=== PATIENT | male | born 1985 | race Hispanic/Latino ===

== ENCOUNTER 2019-04-05 09:00 | Inpatient (IN) | payer BC ==
[~2019-04-05] VITALS: Ht 175.3 cm; Wt 171.9 kg
[2019-04-05] MEDS ORDERED: SODIUM CHLORIDE 0.9% 1000ML 1,000 ML IV STA (09:26)
[2019-04-05] MEDS ORDERED: ASPIRIN 81 MG CHEW TAB PO ONE ×2 (09:30→17:30)
[2019-04-05] MEDS ORDERED: HYDROCODONE/CHLORPHENIRAMINE 5 ML LIQCR PO ONE (09:45)
[2019-04-05] MEDS ORDERED: AZITHROMYCIN 500MG/NS 250 ML 250 ML IV ONE (09:45)
[2019-04-05] MEDS ORDERED: ALBUTEROL/IPRATROPIUM 3 ML NEB NEB ONE (09:45)
[2019-04-05] MEDS ORDERED: CEFTRIAXONE SOD 1 GM/NS 50 ML 50 ML IV ONE ×2 (09:45→12:30)
[2019-04-05 09:52] LABS: BASOPHILS % 0.2 % (0.0-1.0); EOSINOPHILS # (AUTO) 0.1 (0.0-0.4); EOSINOPHILS % 0.8 % (0.0-6.0); HEMATOCRIT 45.8 % (38.2-49.6); HEMOGLOBIN 14.6 g/dL (14.0-18.0); LYMPHOCYTES % 11.6 % (18.0-39.1); MEAN CORPUSCULAR HEMOGLOBIN 29.9 pg (28-32); MEAN CORPUSCULAR HGB CONC 31.9 g/dL (31-35); MEAN CORPUSCULAR VOLUME 93.9 fL (81-99); MONOCYTES # (AUTO) 1.1 (0.2-0.8); MONOCYTES % 6.6 % (4.4-11.3); NEUTROPHILS # (AUTO) 13.5 (2.1-6.9); NEUTROPHILS % 80.3 % (38.7-80.0); PLATELET COUNT 287 x10e3/uL (140-360); RED BLOOD COUNT 4.88 x10e6/uL (4.3-5.7); RED CELL DISTRIBUTION WIDTH 13.2 % (11.7-14.4)
[2019-04-05 10:06] LABS: ALANINE AMINOTRANSFERASE 40 IU/L (0-55); ALBUMIN 3.5 g/dL (3.5-5.0); ALBUMIN/GLOBULIN RATIO 0.9 (0.8-2.0); ALKALINE PHOSPHATASE 68 IU/L (40-150); BLOOD UREA NITROGEN 7 mg/dL (7-26); BUN/CREATININE RATIO 9 (6-25); CALCIUM 9.3 mg/dL (8.4-10.2); CARBON DIOXIDE 24 mmol/L (22-29); CHLORIDE 100 mmol/L (98-107); CREATINE KINASE 154 IU/L (30-200); CREATININE, SERUM 0.77 mg/dL (0.72-1.25); EST GLOMERULAR FILTRATION RATE > 60 ML/MIN (60-); GLUCOSE 132 mg/dL (74-118); MAGNESIUM 1.9 MG/DL (1.3-2.1); SODIUM 135 mmol/L (136-145)
[2019-04-05 10:08] LABS: BILIRUBIN,URINE NEGATIVE (NEGATIVE); CLARITY,URINE CLEAR (CLEAR); COLOR,URINE YELLOW (YELLOW); KETONES,URINE NEGATIVE (NEGATIVE); LEUKOCYTE ESTERASE ,URINE NEGATIVE (NEGATIVE); NITRITE,URINE NEGATIVE (NEGATIVE); PROTEIN,URINE DIPSTICK TRACE (NEGATIVE); URINE UROBILINOGEN 0.2 mg/dL (0.2 - 1)
--- NOTE | 2019-04-05 10:08 | Diagnostic Imaging Report ---
EXAMINATION: CHEST SINGLE (PORTABLE) INDICATION: Chest pain COMPARISON: None FINDINGS: LINES/TUBES:None LUNGS:The lung volumes are very low. No focal consolidation. Possible mild interstitial pulmonary edema. PLEURA:No pleural effusion or pneumothorax. MEDIASTINUM:The cardiomediastinal silhouette appears normal in size and shape. BONES/SOFT TISSUES:No acute osseous injury. ABDOMEN:No free air under the diaphragm. IMPRESSION: Very low lung volumes. Possible mild interstitial pulmonary edema. Signed by: Jaun Colon MD on 04/05/2019 10:04 AM
[2019-04-05 10:19] LABS: INR 0.88; PARTIAL THROMBOPLASTIN TIME 30.4 seconds (23.8-35.5); PROTHROMBIN TIME 12.4 seconds (11.9-14.5)
[2019-04-05 10:29] LABS: BACTERIA,URINE RARE /HPF; EPITHELIAL CELLS,URINE RARE /LPF; MUCUS,URINE MODERATE (RARE); RBC,URINE 0-5 /HPF (0-5); WBC,URINE (MAN) 0-5 /HPF (0-5)
--- NOTE | 2019-04-05 10:57 | NUR ---
scale brought into pt room for accurate weight per md request; pt weight 381.8 lb
[2019-04-05] MEDS ORDERED: ONDANSETRON HCL INJ 2MG/ML 2ML 2 MG/ML VIAL IV NR (11:00)
[2019-04-05] MEDS ORDERED: MORPHINE SULFATE INJ 4 MG/ML INJ 1ML IV NR (11:15)
[2019-04-05 11:32] LABS: AMPHETAMINES SCREEN,URINE NEGATIVE (NEGATIVE); BENZODIAZEPINES SCREEN,URINE NEGATIVE (NEGATIVE); PHENCYCLIDINE SCREEN,URINE NEGATIVE (NEGATIVE)
[2019-04-05] MEDS ORDERED: SODIUM CHLORIDE 0.9% 1000ML 1,000 ML IV SCH (11:34)
--- OUTSIDE RECORDS SUMMARY | 2019-04-05 11:59 | XMS REPORT ---
Author Author [facility] Address Unknown Phone Unavailable Care Team Providers Care Spiral Runner Name Role Phone Michael CRAIG Unavailable Unavailable Problems This patient has no known problems. Allergies, Adverse Reactions, Alerts This patient has no known allergies or adverse reactions. Medications This patient has no known medications. Results Test Description Test Time Test Comments Text Results Atomic Results Result Comments CHEST SINGLE (PORTABLE) 2019-04-05 10:04:00 [place] [address] Patient Name: POLLO PRATT JR MR #: [id number] : 1985 Age/Sex: 33/M Req #: [id number] [facility] Physician: Ordered by: ELKIN CRAIG MD Report #: [id number] Location: ER Room/Bed: Procedure: [id number] DX/CHEST SINGLE (PORTABLE) Exam Date: Exam Time: REPORT STATUS: Signed EXAMINATION: CHEST SINGLE (PORTABLE) INDICATION: Amina st pain COMPARISON: None FINDINGS: LINES/TUBES:None LUNGS:The lung volumes are very low. No focal consolidation. Possible mild interstitial pulmonary edema. PLEURA:No pleural effusion or pneumothorax. MEDIASTINUM:The cardiomediastinal silhouette appears normal in size and shape. BONES/SOFT TISSUES:No acute osseous injury. ABDOMEN:No free air under the diaphragm. IMPRESSION: Very low lung volumes. Possible mild interstitial pulmonary edema. Signed by: Carlos Cloon MD on 04/05/2019 10:04 AM Dictated By: CARLOS COLON MD 1004 Transcribed By: JARETT on 04/05/19 1004 COPY TO: ELKIN CRAIG MD
[2019-04-05] MEDS: ONDANSETRON HCL INJ 2MG/ML 2ML 2 MG/ML VIAL IV PRN ×2 (12:30→20:16)
[2019-04-05] MEDS: MORPHINE SULFATE INJ 4 MG/ML INJ 1ML IV PRN ×4 (12:30→23:34)
[2019-04-05] MEDS: IPRATROPIUM BROMIDE 0.02% 2.5 ML NEB NEB SCH ×2 (13:00→19:00)
--- NOTE | 2019-04-05 13:35 | NUR ---
RECEIVED PT FROM MARIA LUISA. ASHLI. PT FAMILY AT BEDSIDE. BED IS AT THE LOWEST POSITION AND LOCKED. CALL LIGHT WITH IN EASY REACH. PT DENIES NEEDS AT THIS TIME.
[2019-04-05 14:00] VITALS: BP 150/89
[2019-04-05 14:02] VITALS: BP 141/103
--- NOTE | 2019-04-05 14:30 | NUR ---
PT C/O CHEST PAIN. PAGED JOSEY PHERESIS SPECIALIST AND NEW ORDERS RECEIVED.
[2019-04-05 15:00] VITALS: BP_SYST 150; BP_DIAS 102; BP_DIAS 83
[2019-04-05] MEDS: ALBUTEROL SULF 0.083% NEB SOLN 3 ML NEB NEB SCH ×3 (15:00→23:00)
[2019-04-05] MEDS ORDERED: ALBUTEROL/IPRATROPIUM 3 ML NEB NEB PRN (15:00)
[2019-04-05] MEDS ORDERED: NITROGLYCERIN 0.4 MG SUBL SL PRN (15:00)
[2019-04-05 16:00] VITALS: BP 150/112
--- NOTE | 2019-04-05 16:00 | NUR ---
MEDICATION RECONCILIATION IS NOT COMPLETED. PER THE PT, HE IS NOT ON ANY MEDICATIONS. INFORMED THE SAME TO JETT DOWLING.
--- NOTE | 2019-04-05 16:00 | NUR ---
NOTIFIED CHARGE NURSE ON PT STATUS.
--- NOTE | 2019-04-05 16:10 | NUR ---
CHARGE NURSE AT BEDSIDE TO SEE THE PT.
--- NOTE | 2019-04-05 16:20 | NUR ---
PT C/O CHEST PAIN. PAGED JETT DOWLING. NO NEW ORDERS RECEIVED.
--- NOTE | 2019-04-05 16:45 | NUR ---
NO TYLENOL GIVEN PER JOSEY,JETT
[2019-04-05] MEDS ORDERED: FUROSEMIDE INJ 10 MG/ML 4 ML VIAL IV ONE (17:00)
--- NOTE | 2019-04-05 17:00 | NUR ---
JETT DOWLING AT BEDSIDE TO SEE THE PT. NEW ORDERS RECEIVED.
[2019-04-05] MEDS: METOPROLOL TARTRATE INJ 1 MG/ML VIAL IV PRN ×2 (17:13→23:45)
[2019-04-05] MEDS ORDERED: CYCLOBENZAPRINE HCL 10 MG TAB PO PRN (17:15)
[2019-04-05] MEDS ORDERED: METHOCARBAMOL 100MG/1ML 10ML VIAL IV ONE (17:15)
[2019-04-05] MEDS: ENOXAPARIN SOD INJ 40 MG/0.4 ML SYR SC SCH (17:37)
--- NOTE | 2019-04-05 17:45 | NUR ---
PAGED DR. MARIANO REGARDING PT C/O CHEST PAIN. INFORMED PT STATUS TO THE DR. PER THE DR, HE WILL VISIT THE PT TODAY.
--- NOTE | 2019-04-05 18:15 | NUR ---
WALKING ROUND COMPLETED. PT RESTING ON BED. FAMILY AT BEDSIDE. DENIES NEEDS AT THIS TIME.
--- NOTE | 2019-04-05 18:30 | NUR ---
PT RESTING ON BED. FAMILY AT BEDSIDE. DENIES NEEDS AT THIS TIME.
[2019-04-05 18:35] LABS: CREATINE KINASE MB 0.6 ng/mL (0-5.0)
--- NOTE | 2019-04-05 19:00 | NUR ---
BEDSIDE SHIFT REPORT GIVEN TO THE SENIOR SHAREPOINT ARCHITECT RN. PT DENIES NEEDS AT THIS TIME. FAMILY AT BEDSIDE.
--- NOTE | 2019-04-05 19:40 | NUR ---
DR CHAMBERS SEE PATIENT AT BED SIDE WITH NURSE. DR CHAMBERS AWARE PATIENT HR HAS BEEN HIGH IN THE 130S. STATES THERE'S NO NEED TO TREAT THE SINUS TACH. IT'S NOT DANGEROUS. PATIENT WILL BE FINE. NEW ORDERED RECEIVED
[2019-04-05] MEDS ORDERED: IBUPROFEN 400 MG TAB PO PRN (19:45)
[2019-04-05 20:00] VITALS: BP 137/60
[2019-04-05] MEDS: COLCHICINE 0.6 MG TAB PO SCH (20:02)
[2019-04-05] MEDS: IBUPROFEN 400 MG TAB PO SCH (20:02)
[2019-04-05 20:30] VITALS: BP 137/60
--- NOTE | 2019-04-05 21:10 | NUR ---
DR MARIANO SEE PATIENT AT BED SIDE. NOTIFY MD ABOUT HIGH HR 130S. MD ORDER TO KEEP MONITOR. MD WOULD CHECK A LOOK AND ECHO RESULT AND ORDER SOME MORE TEST
[2019-04-05] MEDS ORDERED: SODIUM CHLORIDE 0.9% 50ML 50 ML ONE (21:27)
[2019-04-05] MEDS ORDERED: IOPAMIDOL 370 MG/ML 200 ML INFUS..BTL INJ ONE (21:27)
--- NOTE | 2019-04-05 21:27 | NUR ---
PATIENT IS OFF UNIT FOR CHEST CT
--- NOTE | 2019-04-05 21:55 | NUR ---
INSTRUMENTATION AND CONTROLS DESIGNER NOTIFIED PATIENT'S RIGHT AC IV INFILTRATED WHILE PATIENT'S GETTING CHEST CT. OLD IV WAS D/C. INSTRUMENTATION AND CONTROLS DESIGNER STARTED NEW IV TO LEFT AC 20G
--- NOTE | 2019-04-05 22:10 | NUR ---
PATIENT IS BACK TO UNIT
[2019-04-06] VITALS (8 sets, daily range): BP systolic 107–161; BP diastolic 53–81
--- NOTE | 2019-04-06 01:25 | Diagnostic Imaging Report ---
EXAM: CT Chest WITH contrast 04/05/2019 9:09 PM INDICATION: Chest pain. Pulmonary embolus. COMPARISON: None. Correlation with chest x-ray dated 04/05/2019. TECHNIQUE: Chest was scanned utilizing a multidetector helical scanner from the lung apex through the level of the adrenal glands without administration of IV contrast. Coronal and sagittal reformations were obtained. Routine protocol was performed. IV CONTRAST: 100 cc Isovue 300 RADIATION DOSE: Total DLP: 552.18 mGy*cm Estimated effective dose: (DLP x 0.014 x size factor) mSv COMPLICATIONS: None FINDINGS: LINES/ TUBES: None. LUNGS AND AIRWAYS: Evaluation for pulmonary embolism is limited due to suboptimal opacification and beam hardening artifact. Filling defect in the posterior lower lobe pulmonary arteries, particularly on the left as seen on axial image 55 may be mixing artifact. There is a thick-walled cavitary mass in the left upper lobe anteriorly, which measures 4.5 x 7.6 x 4.9 cm in craniocaudal, AP and transverse dimensions. It abuts the thoracic wall as seen on image 41 series 2. No evidence of rib erosion. Left basilar subsegmental compressive atelectasis. PLEURA: There is a small left pleural effusion. No pneumothorax. HEART AND MEDIASTINUM: The thyroid gland is normal. There are mildly enlarged prevascular lymph nodes lateral to the aortic arch, the largest measuring 1.6 cm in short axis on image 36. No axillary lymphadenopathy. No right hilar lymphadenopathy. Mildly enlarged left hilar lymph node measures 1.3 cm in short axis on image 47. The heart is normal in size.. There is no pericardial effusion. UPPER ABDOMEN: Limited non-contrast views of the upper abdomen show diffuse hepatic steatosis. The adrenal glands are normal. BONES: No acute osseous abnormality. No suspicious lesions. SOFT TISSUES: Unremarkable. IMPRESSION: 1. 7.6 cm cavitary in the left upper lobe anteriorly; differential diagnosis includes neoplasm versus cavitating pneumonia in the proper clinical setting. If there is no clinical history to suggest infectious etiology diagnosis may be warranted. Recommend pulmonology consultation. Mild mediastinal lymphadenopathy. 2. Limited Evaluation for pulmonary embolism. If concern remains, consider repeat examination in 12 hours or alternative study such as ventilation perfusion scan. 3. Small left pleural effusion. Signed by: Dr. Saul Rubio M.D. on 04/06/2019 1:22 AM
[2019-04-06] MEDS: ALBUTEROL SULF 0.083% NEB SOLN 3 ML NEB NEB SCH ×6 (03:00→23:00)
[2019-04-06 03:11] LABS: BASOPHILS # (AUTO) 0.1 (0.0-0.1); BASOPHILS % 0.2 % (0.0-1.0); EOSINOPHILS % 0.1 % (0.0-6.0); HEMATOCRIT 40.2 % (38.2-49.6); HEMOGLOBIN 13.1 g/dL (14.0-18.0); LYMPHOCYTES # (AUTO) 2.6 (1.0-3.2); LYMPHOCYTES % 9.2 % (18.0-39.1); MEAN CORPUSCULAR HGB CONC 32.6 g/dL (31-35); MONOCYTES # (AUTO) 1.7 (0.2-0.8); NEUTROPHILS # (AUTO) 24.1 (2.1-6.9); NEUTROPHILS % 83.7 % (38.7-80.0); PLATELET COUNT 290 x10e3/uL (140-360); RED BLOOD COUNT 4.23 x10e6/uL (4.3-5.7); RED CELL DISTRIBUTION WIDTH 13.4 % (11.7-14.4)
[2019-04-06 03:38] LABS: B-TYPE NATRIURETIC PEPTIDE2 < 5.0 pg/mL (0-100)
[2019-04-06 03:39] LABS: CREATINE KINASE 129 IU/L (30-200)
[2019-04-06] MEDS: ONDANSETRON HCL INJ 2MG/ML 2ML 2 MG/ML VIAL IV PRN (03:39)
[2019-04-06] MEDS: MORPHINE SULFATE INJ 4 MG/ML INJ 1ML IV PRN ×4 (03:39→23:13)
[2019-04-06 04:03] LABS: ANION GAP 14.8 mmol/L (8-16); BLOOD UREA NITROGEN 8 mg/dL (7-26); BUN/CREATININE RATIO 10 (6-25); CARBON DIOXIDE 24 mmol/L (22-29); CHLORIDE 99 mmol/L (98-107); CHOL/HDL RATIO 3.5 (3.9-4.7); CHOLESTEROL 156 MD/DL (0-199); CREATININE, SERUM 0.79 mg/dL (0.72-1.25); EST GLOMERULAR FILTRATION RATE > 60 ML/MIN (60-); GLUCOSE 152 mg/dL (74-118); HDL CHOLESTEROL 45 MG/DL (40-60); LDL CHOLESTEROL 88 MG/DL (60-130); POTASSIUM 3.8 mmol/L (3.5-5.1); SODIUM 134 mmol/L (136-145); TRIGLYCERIDES 114 MG/DL (0-149)
[2019-04-06] MEDS ORDERED: VANCOMYCIN 1GM/NS 250 ML 250 ML IV SCH ×2 (05:00→21:00)
[2019-04-06] MEDS ORDERED: CEFTRIAXONE SOD 1 GM/NS 50 ML 50 ML IV SCH ×2 (05:00→09:00)
[2019-04-06] MEDS: IBUPROFEN 400 MG TAB PO SCH ×2 (05:34→13:06)
--- NOTE | 2019-04-06 05:35 | NUR ---
ATTEMPTED TO OBTAIN CONSENT FORM FOR PICC LINE INSERTION. PATIENT WANTED TO WAIT AND TALK TO DOCTOR BEFORE HE AGREE TO HAVE PICC LINE INSERTION.
--- NOTE | 2019-04-06 05:58 | NUR ---
PAGED DR CORDERO FOR CONSULT. WAITING FOR MD TO CALL BACL
--- NOTE | 2019-04-06 05:58 | NUR ---
SPOKE TO DR HERZOG ABOUT CONSULT. SAID HE WOULD SEE PATIENT LATER
[2019-04-06 06:36] LABS: BASOPHILS # (AUTO) 0.1 (0.0-0.1); BASOPHILS % 0.2 % (0.0-1.0); EOSINOPHILS % 0.1 % (0.0-6.0); HEMATOCRIT 42.4 % (38.2-49.6); HEMOGLOBIN 13.6 g/dL (14.0-18.0); LYMPHOCYTES # (AUTO) 1.9 (1.0-3.2); LYMPHOCYTES % 7.7 % (18.0-39.1); MEAN CORPUSCULAR HEMOGLOBIN 30.4 pg (28-32); MEAN CORPUSCULAR HGB CONC 32.1 g/dL (31-35); MEAN CORPUSCULAR VOLUME 94.9 fL (81-99); MONOCYTES # (AUTO) 1.7 (0.2-0.8); MONOCYTES % 7.2 % (4.4-11.3); NEUTROPHILS # (AUTO) 20.2 (2.1-6.9); NEUTROPHILS % 84.2 % (38.7-80.0); PLATELET COUNT 256 x10e3/uL (140-360); RED BLOOD COUNT 4.47 x10e6/uL (4.3-5.7); RED CELL DISTRIBUTION WIDTH 13.4 % (11.7-14.4)
[2019-04-06 06:54] LABS: ALANINE AMINOTRANSFERASE 29 IU/L (0-55); ALBUMIN 3.1 g/dL (3.5-5.0); ALBUMIN/GLOBULIN RATIO 0.8 (0.8-2.0); ALKALINE PHOSPHATASE 63 IU/L (40-150); ANION GAP 10.8 mmol/L (8-16); BLOOD UREA NITROGEN 8 mg/dL (7-26); BUN/CREATININE RATIO 11 (6-25); CARBON DIOXIDE 28 mmol/L (22-29); CHLORIDE 101 mmol/L (98-107); CREATININE, SERUM 0.72 mg/dL (0.72-1.25); EST GLOMERULAR FILTRATION RATE > 60 ML/MIN (60-); GLUCOSE 115 mg/dL (74-118); POTASSIUM 3.8 mmol/L (3.5-5.1); SODIUM 136 mmol/L (136-145)
[2019-04-06] MEDS: IPRATROPIUM BROMIDE 0.02% 2.5 ML NEB NEB SCH ×4 (07:15→19:00)
[2019-04-06 07:41] LABS: BAND NEUTROPHILS % (MANUAL) 6 %; LYMPHOCYTES % (MANUAL) 16 % (19-48); MONOCYTES % (MANUAL) 12 % (3.4-9.0); NEUTROPHILS % (MANUAL) 66 % (40-74); PLATELET ESTIMATE ADEQUATE; PLATELET MORPHOLOGY COMMENT NORMAL; RBC MORPHOLOGY COMMENT NORMAL
[2019-04-06 08:01] LABS: BAND NEUTROPHILS % (MANUAL) 6 %; LYMPHOCYTES % (MANUAL) 7 % (19-48); MONOCYTES % (MANUAL) 16 % (3.4-9.0); NEUTROPHILS % (MANUAL) 71 % (40-74)
[2019-04-06 08:02] LABS: ANISOCYTOSIS SLIGHT; PLATELET ESTIMATE ADEQUATE; PLATELET MORPHOLOGY COMMENT NORMAL; POIKILOCYTOSIS SLIGHT; RBC MORPHOLOGY COMMENT NORMAL
[2019-04-06] MEDS: COLCHICINE 0.6 MG TAB PO SCH (08:44)
[2019-04-06] MEDS ORDERED: CEFTRIAXONE SOD 1 GRAM/0.9% SOD CHL 50ML BAG IV SCH (09:00)
[2019-04-06] MEDS: BENZONATATE 100 MG CAP PO PRN ×2 (09:42→23:50)
[2019-04-06] MEDS ORDERED: AZITHROMYCIN 500MG/SOD CHL 0.9% 250ML BAG IV SCH (12:00)
[2019-04-06] MEDS: SODIUM CHLORIDE 0.9% 1000ML 1,000 ML IV SCH (12:37)
[2019-04-06] MEDS: VANCOMYCIN 1GM/NS 250 ML 250 ML IV SCH (14:37)
--- NOTE | 2019-04-06 14:57 | Consultation ---
DATE OF CONSULTATION: Pulmonary Critical Care Consultation CHIEF COMPLAINT: Fevers and pleuritic left-sided chest pain. HISTORY OF PRESENT ILLNESS: The patient is a 33-year-old man. He denies any past medical history. He notes some fever and chills for the past month. He said they were easily relieved with Tylenol and he was able to go to work every day. About 1 to 2 days ago, he developed severe pain in the left upper chest that was worse with inspiration. He noted more difficulty breathing. He also complains of cough productive of some yellowish green phlegm. The patient came to the emergency department. He had a CT scan that showed a cavitary lesion in the left upper lobe. PAST SURGICAL HISTORY: Noncontributory. PAST MEDICAL HISTORY: 1. Possible obstructive sleep apnea, although the patient has never been tested. 2. No history of diabetes. 3. No prior history of tuberculosis. 4. The patient did have a dental extraction about 2 months ago. Other than that, his teeth are in fairly and good condition. SOCIAL HISTORY: He currently smokes. He does not use any alcohol or other drugs. He is here with his family. He is born and raised in [place] and has only traveled once to [place]. He has no other travel. He denies any exposure to tuberculosis. There are no birds at home. REVIEW OF SYSTEMS: The patient does complain of some headache. He notes some fevers over the past month that were usually relieved with Tylenol. He is not complaining of neck pain. He does note pain in the left anterior upper chest. It is worse with inspiration. He has no abdominal pain. He has no nausea or vomiting. He has no leg edema. He denies any skin rashes. He denies any testicular lumps or masses. PHYSICAL EXAMINATION: VITAL SIGNS: The patient is afebrile to T-max of 99.6 and his pulse is 124. His respiratory rate is 24 and his blood pressure is 129/56. His saturation is 95%. HEENT: Shows no facial swelling or erythema. LYMPHATIC: Shows no submandibular, cervical, or supraclavicular adenopathy. CARDIAC: Reveals regular rate and rhythm with normal S1 and S2. LUNGS: Auscultation of lungs shows clear breath sounds bilaterally. There is no wheezing. ABDOMEN: Soft and nontender. There is no rebound or guarding. EXTREMITIES: There is no leg edema or calf tenderness. There is no cyanosis or clubbing. SKIN: Shows no rashes. NEUROLOGICAL: Shows no focal abnormalities. IMPRESSION: 1. Left upper lobe pneumonia and lung abscess with sepsis, present on admission. 2. Probable obstructive sleep apnea. PLAN: 1. The patient will be on antibiotics to cover for anaerobes and gram-positive organisms, which are more likely to cause a cavitary pneumonia. 2. The patient will have sputum for Gram stain and culture. 3. Sputums for AFB and QuantiFERON test. 4. Urine antigen for histoplasmosis and fungal serologies. 5. Pain control. 6. Continue IV fluids. 7. Monitor white blood cell count and await blood culture results. Elliot Desouza MD [facility]/MODL /[id number]
--- NOTE | 2019-04-06 16:12 | Consultation ---
DATE OF CONSULTATION: REASON FOR CONSULTATION: Pneumonia, lung abscess, concerned about infection. HISTORY OF PRESENT ILLNESS: This patient, who is a 33-year-old male, denies any past medical history. He does have underlying history of a morbidly obese patient. He denies anything else. From the last month or so, he has been having fever, chills, and cough. He takes Tylenol. Apparently, he pulled his teeth. He had a tooth extraction before that. The patient comes in the emergency room with cough and fever and chills. The patient was admitted through emergency room. Chest x-ray and CT scans were done and showed to have left upper lobe abscess. The patient is currently lying in bed. He is telling me he does have underlying history of breathing problem. His breathing is "heavy." PAST MEDICAL HISTORY: He denies. PAST SURGICAL HISTORY: He denies. ALLERGIES: NKA. SOCIAL HISTORY: He denies smoking, drug abuse, or alcohol abuse. He is . 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 REVIEW OF SYSTEMS: Significant for fever for 4 weeks, shortness of breath for 4 weeks, and cough for 4 weeks, productive. PHYSICAL EXAMINATION: GENERAL: He is currently alert and oriented, does not seem to be in acute distress, but he looks short of breath. HEENT: Normocephalic. Not icteric. NECK: Supple. No JVD. No lymphadenopathy. No thyromegaly. CHEST: Few crackles bilateral. He does have rhonchi on the left side. HEART: S1 and S2. No S3, S4, or murmur. ABDOMEN: Soft. Bowel sounds present. Obese. No tenderness. No hepatosplenomegaly. EXTREMITIES: No edema. SKIN: No rash. JOINTS: No erythema or edema. LABORATORY DATA: Reviewed. Chart reviewed. X-ray also reviewed. His white count on admission with 24,000, came down to 16.89 and hemoglobin 14. His sodium 134, potassium 3.8, and creatinine 0.72. IMPRESSION AND PLAN: 1. Pneumonia, lung abscess. Differential diagnosis post lung abscess from aspiration. The patient is at risk for that. He is obese. He had some tooth surgery done. 2. Differential diagnosis is TB. Differential diagnosis also postobstructive malignancy. RECOMMENDATIONS: 1. We will change antibiotic, vancomycin and Zosyn. Obtain sputum for cultures. Obtain sputum for AFB x3, sample one q.a.m. Obtain HIV and screen with confirmation if need to. 2. We will move the patient to respiratory isolation in the meantime. Discussed with Critical Care. Discussed with Internal Medicine. We will follow. MD SAMMI Rossi/LUTHER /[id number]
[2019-04-06] MEDS ORDERED: IBUPROFEN 400 MG TAB PO PRN (16:15)
--- NOTE | 2019-04-06 16:58 | Consultation ---
DATE OF CONSULTATION: 04/06/2019 Cardiology Consult Note REASON FOR CONSULT: Chest pain. CHIEF COMPLAINT: Chest pain, fevers. HISTORY OF PRESENT ILLNESS: The patient is a 33-year-old man, no previous cardiovascular history, who presents for worsening chest pain for past several weeks as well as low-grade fevers. Denies any heart failure symptoms otherwise. REVIEW OF SYSTEMS: As above, otherwise negative. FAMILY HISTORY: Noncontributory. SOCIAL HISTORY: He does not smoke, drink, or abuse drugs. OUTPATIENT MEDICATIONS: None. ALLERGIES: NO KNOWN DRUG ALLERGIES. OBJECTIVE: VITAL SIGNS: Temperature 100.6, pulse 117, respiratory rate 24, blood pressure 132/63 saturating 99% on 2 L nasal cannula. GENERAL: Obese man in mild distress. CARDIOVASCULAR: Regular rate and rhythm. No murmurs, rubs, or gallops. LUNGS: Clear to auscultation bilaterally. ABDOMEN: Soft, nontender, nondistended. Obese. NEURO AND Psych: Alert and oriented to person, place, and time. Normal affect. INPATIENT MEDICATIONS: Reviewed. LABORATORY DATA: Reviewed. TELEMETRY DATA: Reviewed, shows sinus tachycardia, rate in the 110s to 130s. IMAGING DATA: Reviewed. Chest CT shows large cavitary lung lesion. No obvious pulmonary embolism. ASSESSMENT: 1. Chest pain, acute. 2. Tachycardia. 3. Cavitary lung mass. PLAN: Defer management of cavitary lung lesion to Pulmonary. Chest pain is noncardiac in origin. The patient has already been ruled out for acute IL. Sinus tachycardia likely secondary to underlying infectious process. No treatment necessary. We will monitor. Thank you for this consult. MD BK FullerP/MODL /[id number]
[2019-04-06 17:26] LABS: ABG HCO3 25 mmol/L (23-28); ABG PCO2 42 mmHg (41-51); ABG PH 7.39 (7.31-7.41); ABG PO2 80 mmHg (80-105)
[2019-04-06] MEDS: ENOXAPARIN SOD INJ 40 MG/0.4 ML SYR SC SCH (17:51)
--- NOTE | 2019-04-06 18:35 | Diagnostic Imaging Report ---
Ventilation/perfusion lung scan Clinical Information: 33 M with constant chest pain radiating to back; thick walled 7.6 cavitary mass in ARTEM. Comparison: CT chest PE protocol 04/05/2019; chest radiograph 04/05/2019 Discussion: Xenon-133 gas 21 mCi was administered via inhalation. Dynamic images of the lungs in the posterior projection were obtained through single breath, equilibrium, and washout phases. Distribution of tracer activity is minimally irregular throughout the lungs. There are no segmental ventilatory defects. Washout of tracer is mildly delayed without air trapping. Tracer uptake in liver consistent with steatosis. Perfusion images of the lungs were obtained in multiple projections following intravenous administration of approximately 7 mCi of Tc-99m MAA. Distribution of tracer is minimally irregular throughout the lungs. A nonsegmental focal defect is seen in the ARTEM anteriorly, consistent with known cavitary mass. The contours of the lungs are well demarcated. There are no segmental perfusion defects of any size. The cardiomediastinal silhouette is unremarkable. Impression: 1. Scan findings represent a VERY LOW probability for acute pulmonary embolic disease based on the PIOPED II criteria. 2. Scan evidence of mild obstructive lung disease. 3. Nonsegmental defect in the ARTEM consistent with known mass. Signed by: Dr. Winnie Brown M.D. on 04/06/2019 6:31 PM
[2019-04-06] MEDS: PIPER-TAZ 3.375 GM 50 ML IV SCH (19:18)
--- NOTE | 2019-04-06 20:30 | NUR ---
RECEIVED PATIENT AOX4, A LITTLE COUGHING PRESENT. PATIENT'S HEART RATE WAS ELEVATED AND RAN A TEMPERATURE OF 101.6. PATIENT WAS MEDICATED ORDERED, IV IS FLOWING AND PATENT, FAMILY MEMBER AT BEDSIDE.
[2019-04-06] MEDS: ACETAMINOPHEN 325 MG TAB PO PRN (20:32)
[2019-04-06] MEDS ORDERED: ALBUTEROL SULF 0.083% NEB SOLN 3 ML NEB NEB SCH (23:00)
[2019-04-07] VITALS (8 sets, daily range): BP systolic 111–144; BP diastolic 72–81
--- NOTE | 2019-04-07 00:15 | NUR ---
PATIENT HAD A RECENT COUGHING SPELL AND WAS MEDICATED ORDERED. NOW RESTING IN BED, FAMILY MEMBER PRESENT, WILL CONTINUE TO MONITOR.
[2019-04-07] MEDS: MORPHINE SULFATE INJ 4 MG/ML INJ 1ML IV PRN ×6 (00:40→18:36)
[2019-04-07] MEDS: PIPER-TAZ 3.375 GM 50 ML IV SCH ×4 (00:45→18:00)
[2019-04-07] MEDS: IPRATROPIUM BROMIDE 0.02% 2.5 ML NEB NEB SCH ×4 (02:05→19:15)
[2019-04-07] MEDS: LEVALBUTEROL HCL SOLN NEBU 0.63 MG/3 ML NEB INH PRN ×4 (02:05→22:40)
[2019-04-07] MEDS: ALBUTEROL SULF 0.083% NEB SOLN 3 ML NEB NEB SCH ×6 (02:21→23:00)
[2019-04-07] MEDS: VANCOMYCIN 1GM/NS 250 ML 250 ML IV SCH ×2 (02:30→14:36)
[2019-04-07 05:53] LABS: BASOPHILS % 0.2 % (0.0-1.0); HEMATOCRIT 40.3 % (38.2-49.6); HEMOGLOBIN 12.8 g/dL (14.0-18.0); LYMPHOCYTES # (AUTO) 1.6 (1.0-3.2); LYMPHOCYTES % 6.3 % (18.0-39.1); MEAN CORPUSCULAR HEMOGLOBIN 30.4 pg (28-32); MEAN CORPUSCULAR HGB CONC 31.8 g/dL (31-35); MEAN CORPUSCULAR VOLUME 95.7 fL (81-99); MONOCYTES # (AUTO) 1.7 (0.2-0.8); MONOCYTES % 6.6 % (4.4-11.3); NEUTROPHILS # (AUTO) 22.2 (2.1-6.9); NEUTROPHILS % 86.1 % (38.7-80.0); PLATELET COUNT 260 x10e3/uL (140-360); RED BLOOD COUNT 4.21 x10e6/uL (4.3-5.7); RED CELL DISTRIBUTION WIDTH 13.5 % (11.7-14.4)
[2019-04-07 06:12] LABS: ALANINE AMINOTRANSFERASE 22 IU/L (0-55); ALBUMIN 2.9 g/dL (3.5-5.0); ALBUMIN/GLOBULIN RATIO 0.7 (0.8-2.0); ALKALINE PHOSPHATASE 63 IU/L (40-150); ANION GAP 13.8 mmol/L (8-16); BLOOD UREA NITROGEN 7 mg/dL (7-26); BUN/CREATININE RATIO 9 (6-25); CARBON DIOXIDE 27 mmol/L (22-29); CHLORIDE 99 mmol/L (98-107); CREATININE, SERUM 0.78 mg/dL (0.72-1.25); EST GLOMERULAR FILTRATION RATE > 60 ML/MIN (60-); GLUCOSE 124 mg/dL (74-118); POTASSIUM 3.8 mmol/L (3.5-5.1); SODIUM 136 mmol/L (136-145)
[2019-04-07] MEDS: ONDANSETRON HCL INJ 2MG/ML 2ML 2 MG/ML VIAL IV PRN ×3 (08:12→18:36)
[2019-04-07] MEDS: BENZONATATE 100 MG CAP PO PRN ×2 (08:12→18:36)
[2019-04-07] MEDS: SODIUM CHLORIDE 0.9% 1000ML 1,000 ML IV SCH (08:38)
--- NOTE | 2019-04-07 11:51 | Progress Note ---
DATE: Cardiology Progress Note SUBJECTIVE: The patient complains of shortness of breath especially with exertion and also cough. When he coughs, he does experience chest pains. OBJECTIVE: VITAL SIGNS: Temperature 97.7, pulse 121, respiratory rate 18, blood pressure 113/81, oxygen saturation 99% on 2 L nasal cannula. GENERAL: Alert and oriented x3. Resting in the bed. Appears to be using accessory muscles to breathe. NECK: Supple. No JVD noted. CARDIOVASCULAR: Tachycardic, regular rate and rhythm. No murmurs or gallops. LUNGS: Diminished breath sounds throughout. ABDOMEN: Soft, nontender. CARDIOVASCULAR MEDICATIONS: 1. Nitro 0.4 mg p.r.n. as needed for chest pain. Metoprolol 2.5 mg q.6 hours p.r.n. for heart rate greater than 110. 2. Lovenox 40 mg subcu daily. LABORATORY DATA: WBC 25.78, hemoglobin 12.8, hematocrit 40.3, platelets 260. Sodium 136, potassium 3.8, BUN 7, creatinine 0.78, glucose 124. TELEMETRY: Sinus tachycardia. IMPRESSION: 1. Chest pain. 2. Tachycardia. 3. Cavitary lung mass. 4. Shortness of breath. PLAN: Defer management of cavitary lung lesion to Pulmonary. The patient is being worked up for possible TB, take precaution. Chest pain appears to be noncardiac in origin. Continue to monitor. Pain management per primary team. Sinus tachycardia likely secondary to infectious process. Blood pressure remains borderline. For now, continue to utilize p.r.n. metoprolol as indicated. We will continue to follow. Dictated by Lilibeth So, JETT MD [place] [place]/LUTHER /[id number]
[2019-04-07] MEDS: ACETAMINOPHEN 325 MG TAB PO PRN ×2 (12:30→19:52)
--- NOTE | 2019-04-07 14:10 | Diagnostic Imaging Report ---
EXAMINATION: CHEST XRAY LINE PLACEMENT INDICATION: ^POST PICC LINE INSERTION ^[id number] ^[id number] COMPARISON: 04/05/2019 FINDINGS: AP view TUBES and LINES: New right PICC in place with tip overlying superior SVC. LUNGS: Limited by low lung volumes and body habitus. Increased left lung airspace opacities. PLEURA: No pneumothorax. HEART AND MEDIASTINUM: The cardiomediastinal silhouette is enlarged. BONES AND SOFT TISSUES: No acute osseous lesion. Soft tissues are unremarkable. UPPER ABDOMEN: No free air under the diaphragm. IMPRESSION: Right PICC in place with tip overlying superior SVC. No pneumothorax. Increased left lung airspace opacities, representing worsening asymmetric pulmonary edema and/or pneumonia. Layering left pleural effusion cannot be excluded. Signed by: Dr. Praveen Braun MD on 04/07/2019 2:07 PM
--- NOTE | 2019-04-07 14:37 | NUR ---
COLLECTED DAY 2 SPUTUM SAMPLE AND TOOK IT TO LAB
--- NOTE | 2019-04-07 14:48 | Progress Note ---
DATE: SUBJECTIVE: The patient feels improved. He has less pain. He is not complaining of fevers. PHYSICAL EXAMINATION: VITAL SIGNS: The patient is afebrile. The T-max is 99.9. Blood pressure is 112/72 and saturation is 99% on 4 L. HEENT: Shows no facial swelling or erythema. CARDIAC: Reveals regular rate and rhythm with normal S1 and S2. LUNGS: Auscultation of lungs reveals clear breath sounds bilaterally. There is no wheezing. ABDOMEN: Soft, nontender. There is no rebound or guarding. EXTREMITIES: Show no leg edema or calf tenderness. There is no cyanosis clubbing. SKIN: Shows no rashes. NEUROLOGIC: Shows no focal abnormalities. IMPRESSION: 1. Cavitary pneumonia with sepsis, present on admission. 2. Obstructive sleep apnea. PLAN: 1. Continue current antibiotics. 2. Await AFB results and QuantiFERON test. 3. Await HIV serologies and fungal serologies. 4. Pain control. 5. Continue to monitor blood counts. Elliot Desouza MD [facility]/MODL /[id number]
[2019-04-07] MEDS: ENOXAPARIN SOD INJ 40 MG/0.4 ML SYR SC SCH (18:00)
--- NOTE | 2019-04-07 18:14 | Progress Note ---
DATE: SUBJECTIVE: Mr. Morales is feeling better. His breathing is better. REVIEW OF SYSTEMS: There is nothing new. He is still having cough. LABORATORY DATA: Reviewed. His white count went up to 25.7, hemoglobin 12. We are still waiting on AFB. His sputum cultures are still pending. PHYSICAL EXAMINATION: GENERAL: He is currently alert, oriented, does not seem in acute distress. VITAL SIGNS: Stable. Afebrile. Temperature 97.7, heart rate 120, respiration 18. HEENT: Normocephalic. NECK: Supple. CHEST: Few crackles on the left. COR: S1, S2. No S3, S4 or murmur. ABDOMEN: Soft, obese. EXTREMITIES: No edema. IMPRESSION: 1. A left upper lobe abscess, concerned about mycobacterium, concerned about bacteria, such as Staph aureus, maybe MRSA versus mixed , rule out aspiration. 2. Obesity. 3. Sleep apnea. PLAN: 1. Continue with IV antibiotic. His white count normalized and is feeling better. We are awaiting for sputum cultures, sputum for AFB x3. Sample was sent. 2. We are awaiting also for his HIV. 3. Further recommendations to follow. 4. We will send sputum for fungal. Discussed with the patient. Answered all his question. Discussed with the medical team. MD SAMMI Rossi/LUTHER /[id number]
--- NOTE | 2019-04-07 20:00 | NUR ---
PATIENT IN STABLE CONDITION, NO SIGNS OF DISTRESS AT THIS TIME. BREATH SOUND WERE CLEAR, NASAL CANNULA INTACT AND PATENT. NEW PICC LINE IN PLACE, FAMILY MEMBER PRESENT, CALL LIGHT WITHIN REACH, WILL CONTINUE TO MONITOR.
[2019-04-08] VITALS (8 sets, daily range): BP systolic 99–135; BP diastolic 54–83
[2019-04-08] MEDS: PIPER-TAZ 3.375 GM 50 ML IV SCH ×5 (00:47→23:58)
[2019-04-08] MEDS: MORPHINE SULFATE INJ 4 MG/ML INJ 1ML IV PRN ×6 (00:48→23:22)
[2019-04-08] MEDS: VANCOMYCIN 1GM/NS 250 ML 250 ML IV SCH (02:32)
[2019-04-08] MEDS: BENZONATATE 100 MG CAP PO PRN (02:33)
[2019-04-08] MEDS: ALBUTEROL SULF 0.083% NEB SOLN 3 ML NEB NEB SCH ×6 (03:50→23:00)
[2019-04-08] MEDS: IPRATROPIUM BROMIDE 0.02% 2.5 ML NEB NEB SCH ×4 (03:50→19:45)
[2019-04-08 04:41] LABS: BASOPHILS % 0.2 % (0.0-1.0); EOSINOPHILS # (AUTO) 0.1 (0.0-0.4); EOSINOPHILS % 0.5 % (0.0-6.0); HEMATOCRIT 36.7 % (38.2-49.6); HEMOGLOBIN 11.9 g/dL (14.0-18.0); LYMPHOCYTES # (AUTO) 2.1 (1.0-3.2); MEAN CORPUSCULAR HEMOGLOBIN 30.7 pg (28-32); MEAN CORPUSCULAR HGB CONC 32.4 g/dL (31-35); MEAN CORPUSCULAR VOLUME 94.8 fL (81-99); MONOCYTES # (AUTO) 1.4 (0.2-0.8); MONOCYTES % 7.4 % (4.4-11.3); NEUTROPHILS % 80.2 % (38.7-80.0); PLATELET COUNT 247 x10e3/uL (140-360); RED BLOOD COUNT 3.87 x10e6/uL (4.3-5.7); RED CELL DISTRIBUTION WIDTH 13.4 % (11.7-14.4)
[2019-04-08 05:02] LABS: ALANINE AMINOTRANSFERASE 23 IU/L (0-55); ALBUMIN 2.5 g/dL (3.5-5.0); ALBUMIN/GLOBULIN RATIO 0.6 (0.8-2.0); ALKALINE PHOSPHATASE 65 IU/L (40-150); ANION GAP 11.4 mmol/L (8-16); BLOOD UREA NITROGEN 6 mg/dL (7-26); BUN/CREATININE RATIO 8 (6-25); CALCIUM 8.6 mg/dL (8.4-10.2); CARBON DIOXIDE 29 mmol/L (22-29); CHLORIDE 100 mmol/L (98-107); CREATININE, SERUM 0.75 mg/dL (0.72-1.25); EST GLOMERULAR FILTRATION RATE > 60 ML/MIN (60-); GLUCOSE 127 mg/dL (74-118); POTASSIUM 3.4 mmol/L (3.5-5.1); SODIUM 137 mmol/L (136-145)
[2019-04-08] MEDS: LEVALBUTEROL HCL SOLN NEBU 0.63 MG/3 ML NEB INH PRN ×4 (07:02→19:45)
[2019-04-08] MEDS: DOCUSATE SODIUM 100 MG CAP PO SCH ×2 (08:28→16:15)
[2019-04-08] MEDS: POLYETHYLENE GLYCOL 3350 17 GM PACK PO SCH ×2 (08:28→16:15)
--- NOTE | 2019-04-08 10:22 | NUR ---
CALLED AND INFORMED JOSEY RODRIGUEZ N.P. OF PATIENT'S POTASSIUM OF 3.4- NEW ORDER RECEIVED.
[2019-04-08] MEDS ORDERED: POTASSIUM CHLORIDE 20 MEQ TAB CR PO NR (10:30)
--- NOTE | 2019-04-08 11:21 | Progress Note ---
DATE: Pulmonary Progress Note SUBJECTIVE: The patient is feeling better. He still has mild temperature of 99.7. PHYSICAL EXAMINATION: VITAL SIGNS: The patient is afebrile. The vital signs are stable. HEENT: Shows no facial swelling or erythema. CARDIAC: Reveals regular rate and rhythm with normal S1 and S2. LUNGS: Auscultation of lungs shows clear breath sounds bilaterally. There is no wheezing. ABDOMEN: Soft, nontender. There is no rebound or guarding. EXTREMITIES: Show no leg edema or calf tenderness. There is no cyanosis or clubbing. SKIN: Shows no rashes. NEUROLOGICAL: Shows no focal abnormalities. IMPRESSION: 1. Staphylococcus aureus pneumonia with sepsis, present on admission. 2. Obstructive sleep apnea. PLAN: 1. Adjust antibiotics and monitor blood count. 2. Discuss duration of therapy with Infectious Disease. 3. Obtain a report of echocardiogram. 4. If the Staph is MRSA, the family will need prophylactic screening. MD JOSE G Montesinos/LUTHER /[id number]
--- NOTE | 2019-04-08 16:33 | Progress Note ---
DATE: SUBJECTIVE: Mr. Morales is feeling better. There are no new complaints. REVIEW OF SYSTEMS: HEENT: Negative. PULMONARY: Negative. CARDIAC: Negative. : Negative. His other systems are within normal limits. His breathing is better. PHYSICAL EXAMINATION: GENERAL: He is currently alert, oriented, does not seem in acute distress. VITAL SIGNS: Stable. Currently afebrile. GENERAL: Obese. HEENT: Not icteric. NECK: Supple. CHEST: Clear. HEART: S1, S2. No S3, S4, or murmur. IMPRESSION AND PLAN: 1. Lung abscess. He is growing Staph aureus. We will increase his vancomycin dose. With morbidly obese patient, the concern is that we may have continued IV antibiotic. 2. Lung abscess, concerned about TB. We are still waiting for three sputum for AFB smear. 3. Morbidly obese patient. 4. Discussed with the patient, answered all his questions. Discussed with the medical team. We will follow with you. MD SAMMI Rossi/LUTHER /[id number]
[2019-04-08] MEDS: VANCOMYCIN HCL 1.5 GM in SODIUM CHLORIDE 0.9% 250ML 300 ML IV SCH (16:39)
[2019-04-08] MEDS: ENOXAPARIN SOD INJ 40 MG/0.4 ML SYR SC SCH (16:39)
[2019-04-08] MEDS: HYDROCODONE/CHLORPHENIRAMINE 5 ML LIQCR PO PRN (18:30)
--- NOTE | 2019-04-08 19:30 | NUR ---
PATIENT IN STABLE CONDITION WITH NO S/S OF RESPIRATORY DISTRESS. NO PAIN VOICED. IV ANTIBIOTIC INFUSING. CALL LIGHT IS WITHIN REACH, PATIENT INSTRUCTED TO CALL FOR ASSISTANCE NEEDED. FATHER PRESENT IN ROOM. BEDSIDE REPORT GIVEN TO ONCOMING NURSE.
--- NOTE | 2019-04-08 19:37 | NUR ---
PT IS RESTING IN BED WITH HIS DAD AT BEDSIDE. RESPIRATION IS EVEN AND UNLABORED, NO DISTRESS NOTED. BED IN THE LOWEST POSITION, LOCKED, AND CALL LIGHT WITHIN REACH. WILL CONTINUE TO MONITOR.
[2019-04-09] MEDS: IPRATROPIUM BROMIDE 0.02% 2.5 ML NEB NEB SCH ×3 (00:15→15:00)
[2019-04-09] MEDS: LEVALBUTEROL HCL SOLN NEBU 0.63 MG/3 ML NEB INH PRN ×4 (00:15→15:00)
[2019-04-09 01:10] VITALS: BP 104/80
[2019-04-09] MEDS: ALBUTEROL SULF 0.083% NEB SOLN 3 ML NEB NEB SCH ×4 (03:00→15:00)
[2019-04-09] MEDS: VANCOMYCIN HCL 1.5 GM in SODIUM CHLORIDE 0.9% 250ML 300 ML IV SCH (03:40)
[2019-04-09] MEDS: MORPHINE SULFATE INJ 4 MG/ML INJ 1ML IV PRN ×3 (03:50→18:47)
[2019-04-09 03:57] LABS: BASOPHILS % 0.2 % (0.0-1.0); EOSINOPHILS # (AUTO) 0.2 (0.0-0.4); EOSINOPHILS % 1.6 % (0.0-6.0); HEMATOCRIT 38.1 % (38.2-49.6); HEMOGLOBIN 12.4 g/dL (14.0-18.0); LYMPHOCYTES # (AUTO) 2.1 (1.0-3.2); LYMPHOCYTES % 15.6 % (18.0-39.1); MEAN CORPUSCULAR HEMOGLOBIN 30.7 pg (28-32); MEAN CORPUSCULAR HGB CONC 32.5 g/dL (31-35); MEAN CORPUSCULAR VOLUME 94.3 fL (81-99); MONOCYTES # (AUTO) 1.2 (0.2-0.8); MONOCYTES % 8.7 % (4.4-11.3); NEUTROPHILS # (AUTO) 9.9 (2.1-6.9); NEUTROPHILS % 73.3 % (38.7-80.0); PLATELET COUNT 287 x10e3/uL (140-360); RED BLOOD COUNT 4.04 x10e6/uL (4.3-5.7); RED CELL DISTRIBUTION WIDTH 13.4 % (11.7-14.4)
[2019-04-09 04:17] LABS: ANION GAP 11.6 mmol/L (8-16); BLOOD UREA NITROGEN 7 mg/dL (7-26); BUN/CREATININE RATIO 10 (6-25); CARBON DIOXIDE 29 mmol/L (22-29); CHLORIDE 97 mmol/L (98-107); CREATININE, SERUM 0.73 mg/dL (0.72-1.25); EST GLOMERULAR FILTRATION RATE > 60 ML/MIN (60-); GLUCOSE 113 mg/dL (74-118); POTASSIUM 3.6 mmol/L (3.5-5.1); SODIUM 134 mmol/L (136-145)
--- NOTE | 2019-04-09 05:00 | Progress Note ---
DATE: 04/06/2019 Cardiology Progress Note SUBJECTIVE: Low-grade fever and chest pain overnight. OBJECTIVE: VITAL SIGNS: Temperature 100.6, pulse 117, respiratory rate 26, blood pressure 133/63, and saturating 99% on 2 liters nasal cannula. GENERAL: Obese man, in mild respiratory distress, complaining of a chest pain. CARDIOVASCULAR: Tachycardic, regular. No murmurs, rubs, or gallops. LUNGS: Clear to auscultation at the bases, poor exam due to obesity. ABDOMEN: Obese, soft, nontender, and nondistended. NEUROLOGIC AND PSYCHIATRIC: Alert and oriented to person, place, and time. Normal affect. REVIEW OF SYSTEMS: The patient has been having fevers, worsening chest pain, cough DICTATION ENDS HERE MD ADRY Fuller/LUTHER /[id number]
[2019-04-09 05:29] VITALS: BP 121/67
[2019-04-09] MEDS: PIPER-TAZ 3.375 GM 50 ML IV SCH (05:53)
[2019-04-09] MEDS: HYDROCODONE/CHLORPHENIRAMINE 5 ML LIQCR PO PRN ×2 (06:17→18:47)
--- NOTE | 2019-04-09 06:49 | NUR ---
SPOKE TO JOSEY RODRIGUEZ AND NOTIFY HER THAT PT SPUTUM CAME BACK POSITIVE FOR MRSA. PER JENNIFER Mansfield/Ranjeet WILSON 3.375 Q6H. WILL CONTINUE TO MONITOR.
[2019-04-09 07:54] VITALS: BP 141/63
[2019-04-09] MEDS: DOCUSATE SODIUM 100 MG CAP PO SCH ×2 (09:00→17:00)
[2019-04-09] MEDS: POLYETHYLENE GLYCOL 3350 17 GM PACK PO SCH ×2 (09:00→17:00)
--- NOTE | 2019-04-09 10:14 | NUR ---
PATIENT TOOK SHOWER, PICC LINE DRESSING SATURATED. CHANGED AT THIS TIME AND REINFORCED. PATIENT TOLERATED WELL. NO OTHER NEEDS STATED AT THIS TIME.
[2019-04-09 11:28] VITALS: BP 96/56
--- NOTE | 2019-04-09 15:04 | Progress Note ---
DATE: Pulmonary Critical Care Progress Note SUBJECTIVE: The patient feels better. He has less chest pain. He is not having any fevers. PHYSICAL EXAMINATION: VITAL SIGNS: The patient is afebrile. The vital signs are stable. HEENT: Shows no facial swelling or erythema. The oropharynx is normal. LYMPHATIC: Shows no submandibular, cervical, or supraclavicular adenopathy. CARDIAC: Reveals a regular rate and rhythm with normal S1, S2. There are no murmurs or rubs heard. LUNGS: Auscultation of lungs shows clear breath sounds bilaterally. There is no wheezing. ABDOMEN: Soft, nontender. There is no rebound or guarding. There is no leg edema or calf tenderness. There is no cyanosis or clubbing. SKIN: Shows no rashes. NEUROLOGICAL: Shows no focal abnormalities. IMPRESSION: 1. Staphylococcus aureus pneumonia with cavitation and sepsis, present on admission. 2. Obstructive sleep apnea. PLAN: 1. Continue IV antibiotics. 2. Continue treated the patient out of bed as tolerated. 3. Wean oxygen. 4. Discuss duration of treatment with Infectious Disease. Elliot Desouza MD [facility]/MODL /[id number]
[2019-04-09 15:27] VITALS: BP 143/86
--- NOTE | 2019-04-09 15:56 | NUR ---
PAGE PLACED TO MD CORDERO REGARDING VANC TROUGH RESULTS. AWAITING CALL BACK.
--- NOTE | 2019-04-09 16:09 | Progress Note ---
DATE: SUBJECTIVE: Mr. Morales is feeling better. However, he continued to have some chest pain, pleuritic in nature on the left side. He is still having little bit of cough. His cultures showed MRSA. His sensitivity pathogen reviewed. His AFB smear still pending. PHYSICAL EXAMINATION: GENERAL: He is currently alert, oriented, does not seem to be in acute distress. VITAL SIGNS: Stable, currently afebrile. HEENT: He is not icteric. NECK: Supple. CHEST: Clear. HEART: Soft. IMPRESSION AND PLAN: Pneumonia, lung abscess, methicillin-resistant Staphylococcus aureus. PLAN: The plan is to continue with vancomycin. We will increase the dose to 1.5 q.12. He has obesity with a BMI of 56. I do not think oral antibiotic will be adequate to tackle this abscess, which he could have symptoms. We will do two weeks of IV vancomycin. Follow up chest x-ray. Follow up clinically. Our only other options be oral doxycycline and to give him a big dose. He will certainly have side effects. Discussed with the patient, we are still waiting on AFB smear. The patient could be discharged home and follow up as an outpatient. Discussed with the medical team. MD SAMMI Rossi/LUTHER /[id number]
[2019-04-09] MEDS ORDERED: VANCOMYCIN HCL 2 GM in SODIUM CHLORIDE 0.9% 500ML 400 ML IV SCH (16:15)
[2019-04-09] MEDS ORDERED: VANCOMYCIN 1GM/NS 250 ML 250 ML IV ONE (16:15)
--- NOTE | 2019-04-09 16:58 | NUR ---
SPOKE WITH MD CORDERO AND JETT RODRIGUEZ, IV ABX WILL BE IN OFFICE, AWAITING APPROVAL FROM MD Tosha HERZOG FOR DISCHARGE APPROVAL.
[2019-04-09] MEDS: ENOXAPARIN SOD INJ 40 MG/0.4 ML SYR SC SCH (17:00)
[2019-04-09] MEDS ORDERED: VANCOMYCIN HCL 2 GM in SODIUM CHLORIDE 0.9% 500ML 500 ML IV ONE (17:00)
[2019-04-09] MEDS ORDERED: VANCOMYCIN HCL1 GM IV (19:06)
--- NOTE | 2019-04-09 19:33 | NUR ---
PT IS RESTING IN BED WITH HIS AT BEDSIDE. RESPIRATION IS EVEN AND UNLABORED, NO DISTRESS NOTED. BED IN THE LOWEST POSITION, LOCKED, AND CALL LIGHT WITHIN REACH. WILL CONTINUE TO MONITOR.
--- NOTE | 2019-04-09 20:29 | NUR ---
SPOKE TO DR CORDERO TO CLARIFY THE DISCHARGE ORDER IN REGARD TO PT LEAVING WITH WITH PICC LINE OR LINE BEING REMOVED. PER DR CORDERO PT WILL LEAVE WITH PICC LINE FOR OUTPATIENT IV ANTIBIOTIC TXT. WILL CONTINUE TO MONITOR.
--- NOTE | 2019-04-09 20:38 | NUR ---
PT IS A&OX3. RESPIRATION IS EVEN AND UNLABORED, NO DISTRESS NOTED. PT VERBALIZE DISCHARGE INSTRUCTION. PT WAS WHEELED OF THE UNIT AT 2037 WITH ALL OF HIS BELONGS.
--- NOTE | 2019-04-10 10:38 | Discharge Summary ---
ADMISSION DIAGNOSES: 1. Chest pain. 2. Morbid obesity. 3. Tachycardia. DISCHARGE DIAGNOSES: 1. Chest pain. 2. Morbid obesity. 3. Tachycardia. 4. Methicillin-resistant Staphylococcus aureus pneumonia, present on admission. 5. Rule out endocarditis. 6. Rule out tuberculosis, pending. HISTORY: None. SURGICAL HISTORY: None. FAMILY HISTORY: The patient's mother, father, and sister have diabetes. The patient's aunt has cancer. SOCIAL HISTORY: Occasional alcohol use and the patient admits to smoking 1 pack of cigarettes a day. HOSPITAL COURSE: A 33-year-old male with chest pain, described as constant, sharp and substernal that began yesterday. He has associated shortness of breath and dizziness. He denies nausea and vomiting. Symptoms improved with bending forward and nothing worsens the pain. On admission, troponins were negative x3. Chest x-ray showed very low lung volumes, possible mild interstitial pulmonary edema. CT of the chest was then done, that showed a 7.6 cm cavitary in the left upper lobe anteriorly, small left pleural effusion. A V/Q scan was done that showed a very low probability for PE. ID, Pulmonary, and Cardiology were all consulted. Cardiology originally thought the patient had endocarditis. The patient was started on ibuprofen and colchicine, which seemed to improve the symptoms. Then, ID started the patient on vancomycin and Zosyn. A sputum culture was collected, which showed MRSA. Blood cultures were negative. Urine cultures were negative. Infectious Disease also collected a sputum for AFB, which was still pending at time of discharge. HIV was negative. Aspergillus and histoplasma were still pending. Drug screen was negative. Per Infectious Disease and Pulmonary recommendation, the patient is okay to discharge home on 1.75 mg vancomycin q.12 hours x2 weeks. The patient had a PICC line placed and will follow up with Dr. Ford as discussed. Vital signs stable, the patient afebrile. Family and the patient understand plan and agree. He will follow up with primary care in 1 to 2 weeks. Dictated by Marie Gallego NP MD ANTHONY Saavedra/MODL /[id number]
== END 2019-04-09 20:38 | disposition home or self-care (01) | DRG 871 ==
LOC: ER 09:00 → ERHOLD 11:34 → MED/SURG2 13:36 → MED/SURG3 04-06 19:52
PROVIDERS: ADMIT Internal Medicine; ATTEND Internal Medicine
PROC: 02HV33Z Insertion of Infusion Device into Superior Vena Cava, Percutaneous Approach (ICD-10-PCS; principal; 2019-04-05)
DX: A41.02 Sepsis due to Methicillin resistant Staphylococcus aureus (principal); J15.212 Pneumonia due to Methicillin resistant Staphylococcus aureus; J85.1 Abscess of lung with pneumonia; J81.1 Chronic pulmonary edema; J90 Pleural effusion, not elsewhere classified; Z68.43 Body mass index [BMI] 50.0-59.9, adult; I38 Endocarditis, valve unspecified; E66.01 Morbid (severe) obesity due to excess calories; R91.8 Other nonspecific abnormal finding of lung field; G47.33 Obstructive sleep apnea (adult) (pediatric)
CPT/HCPCS: 36415; 36569; 36600; 71045; 71260; 78582; 80048; 80053; 80061; 80202; 80307; 81001; 82550; 82553; 82805; 82948; 83036; 83605; 83735; 83880; 84443; 84484; 85025; 85379; 85610; 85730; 86480; 86606; 86612; 86698; 87040; 87070; 87086; 87116; 87186; 87205; 87206; 87385; 87536; 93005; 93306; 94640; 99284; A9540; A9558; J0456; J0696; J1650; J1940; J2270; J2405; J2543; J2800; J3370; J7030; J7040; J7050; Q9967